=== PATIENT | male | born 1970 | race Caucasian/White ===

== ENCOUNTER 2017-08-27 14:11 | Emergency (ER) | payer SELFPAY ==
[~2017-08-27] VITALS: Ht 185.4 cm; Wt 69.4 kg
[2017-08-27 15:12] LABS: BASOPHILS # (AUTO) 0.02 x10^3/uL (0-0.1); BASOPHILS % (AUTO) 0 % (0-1); EOSINOPHILS # (AUTO) 0.13 x10^3/uL (0-0.4); EOSINOPHILS % (AUTO) 2 % (1-7); LYMPHOCYTES # (AUTO) 1.75 x10^3/uL (1-3.4); LYMPHOCYTES % (AUTO) 29 % (22-44); MD NO; MEAN CORPUSCULAR HEMOGLOBIN 30.8 pg (27.5-34.5); MEAN CORPUSCULAR HGB CONC 33.2 g/dL (33.2-36.2); MEAN CORPUSCULAR VOLUME 92.9 fL (81-97); MEAN PLATELET VOLUME 7.4 fL (7.4-10.4); MONOCYTES # (AUTO) 0.33 x10^3/uL (0.2-0.8); MONOCYTES % (AUTO) 6 % (2-9); NEUTROPHILS # (AUTO) 3.83 x10^3/uL (1.8-6.8); NEUTROPHILS % (AUTO) 63 % (42-75); PLATELET COUNT 256 x10^3/uL (130-400); RED BLOOD COUNT 5.32 x10^6/uL (4.38-5.82)
[2017-08-27 15:20] LABS: ALBUMIN 4.6 g/dL (3.4-5.0); ANION GAP 12 mmol/L (5-15); CALCIUM 8.6 mg/dL (8.5-10.1); CHLORIDE 108 mmol/L (98-107); CREATININE 1.13 mg/dL (0.7-1.3)
[2017-08-27 15:21] LABS: AMPHETAMINE SCREEN, URINE Negative (Negative); BARBITURATE SCREEN, URINE Negative (Negative); BENZODIAZEPINE SCREEN, URINE Negative (Negative); CANNABINOID SCREEN, URINE Negative (Negative); COCAINE SCREEN, URINE Negative (Negative); METHADONE SCREEN, URINE Negative (Negative); OPIATE SCREEN, URINE Negative (Negative)
[2017-08-27 15:22] LABS: SALICYLATE LEVEL < 1.7 mg/dL (2.8-20.0)
[2017-08-27 15:34] LABS: ACETAMINOPHEN < 2 mcg/mL (10-30)
[2017-08-27] MEDS ORDERED: GABA300C PO (15:43)
[2017-08-27] MEDS ORDERED: MIDO5TAB PO (15:43)
[2017-08-27] MEDS ORDERED: CHLORDIAZEPOXIDE 10 MG CAPSULE ONE (16:17)
[2017-08-27] MEDS ORDERED: CHLORDIAZEPOXIDE 10 MG CAPSULE PO ONE (16:30)
[2017-08-27] MEDS ORDERED: CHLORDIAZEPOXIDE 25 MG CAPSULE ONE (20:23)
[2017-08-27] MEDS ORDERED: LORazepam 2 MG/ML, 1ML ONE (20:24)
[2017-08-27] MEDS ORDERED: LORazepam 2 MG/ML, 1ML IVPush ONE (20:30)
[2017-08-27] MEDS ORDERED: SODIUM CHLORIDE 0.9% 1,000ML IVBOLUS ONE (20:30)
[2017-08-27] MEDS ORDERED: CHLORDIAZEPOXIDE 25 MG CAPSULE PO PRN (20:30)
[2017-08-28] MEDS ORDERED: LORazepam 2 MG/ML, 1ML ONE (00:55)
[2017-08-28] MEDS ORDERED: LORazepam 1MG TABLET ONE (00:58)
[2017-08-28] MEDS ORDERED: LORazepam 1MG TABLET PO ONE (01:30)
[2017-08-28 02:00] VITALS: BP 104/62
== END 2017-08-28 02:33 | disposition home or self-care (01) ==
LOC: ED 16:31
DX: F10.129 Alcohol abuse with intoxication, unspecified (principal); R45.851 Suicidal ideations; F32.9 Major depressive disorder, single episode, unspecified
CPT/HCPCS: 36415; 80048; 80307; 80329; 82040; 82962; 85025; 96374; 99284; J2060; J7030; G0480